=== PATIENT | female | born 1995 | race Hispanic/Latino ===

== ENCOUNTER → 2017-09-06 | Outpatient (CLI) | payer OTHER | LOC: M LRY 16:37 | DX: S99.921A Unspecified injury of right foot, initial encounter (principal); X58.XXXA Exposure to other specified factors, initial encounter; Y92.89 Other specified places as the place of occurrence of the external cause | CPT/HCPCS: 73630; 81025 ==

== ENCOUNTER 2017-12-28 22:31 | Emergency (ER) | payer OTHER ==
[2017-12-28 23:13] LABS: AMORPHOUS SEDIMENT RFX SMALL (NEGATIVE); KETONE, URINE AUTO RFX NEGATIVE (NEGATIVE); MUCUS, URINE RFX SMALL (NEGATIVE); NITRITE, URINE AUTO RFX NEGATIVE (NEGATIVE); RBC, URINE AUTO RFX TNTC /HPF (0-3); SPECIFIC GRAVITY UR AUTO RFX 1.024 (1.002-1.035); SQUAM EPITHELIAL CELL UR AURFX 0 /HPF (0-6)
[2017-12-28 23:17] LABS: LEUKOCYTE ESTERASE UR AUTO RFX 2+ (NEGATIVE); WBC, URINE AUTO RFX 123 /HPF (0-3)
[2017-12-28] MEDS: PHENAZOPYRIDINE 100 MG TAB PO (23:23)
[2017-12-28] MEDS: BACTRIM 160MG/800MG DS TAB PO (23:23)
== END 2017-12-28 23:30 | disposition home or self-care (01) ==
LOC: M ED 22:31
DX: N30.00 Acute cystitis without hematuria (principal)
CPT/HCPCS: 81001